=== PATIENT | male | born 1970 | race Caucasian/White ===

== ENCOUNTER 2016-11-21 18:59 | Emergency (ER) | payer OTHER, BC ==
[~2016-11-21] VITALS: Ht 170.2 cm; Wt 84.1 kg
[2016-11-21] MEDS ORDERED: NORCO 5/3251 TABLET PO (20:17)
[2016-11-21] MEDS ORDERED: MOTRIN600 MG PO (20:17)
[2016-11-21 20:57] VITALS: BP 139/84
== END 2016-11-21 21:07 | disposition home or self-care (01) ==
LOC: EME 18:59
DX: S83.91XA Sprain of unspecified site of right knee, initial encounter (principal); Y04.0XXA Assault by unarmed brawl or fight, initial encounter; Y92.119 Unspecified place in children's home and orphanage as the place of occurrence of the external cause; Y99.0 Civilian activity done for income or pay
CPT/HCPCS: 73564; 99281; 99284